=== PATIENT | male | born 1990 | race African-American/Black ===

== ENCOUNTER 2017-08-13 01:12 | Emergency (ER) | payer SELFPAY ==
[2017-08-13] MEDS ORDERED: NA CHLORIDE 0.9% 1,000 ML ONE (01:54)
[2017-08-13] MEDS ORDERED: ONDANSETRON 4 MG/2 ML VIAL ONE (01:54)
[2017-08-13 02:04] LABS: Absolute Lymphocytes (CBC) 3.3 K/uL (0.7-4.9); Absolute Monocytes 0.5 K/uL (0.1-1.3); Absolute Neutrophil 7.2 K/uL (1.8-8.0); Basophils % 0.6 % (0-1.3); Eosinophils % 3.9 % (0-4.4); Hematocrit 43.9 % (39.6-49.0); Lymphocytes % 28.6 % (15.3-44.8); MCH 28.2 pg (27.0-35.0); MCV 85.7 fL (80-100); Monocytes % 4.3 % (3.3-12.3); RBC Red Blood Cell Count 5.12 M/uL (4.33-5.43)
[2017-08-13 02:05] LABS: Protime INR 1.04
[2017-08-13 03:02] LABS: ALT/SGPT 18 U/L (12-78); AST/SGOT 18 U/L (15-37); Albumin 4.3 g/dL (3.4-5.0); Alcohol Serum/Plasma < 3 mg/dL (0-3); Alkaline Phosphatase 89 U/L (45-117); BUN Blood Urea Nitrogen 10 mg/dL (7-18); Bicarbonate 32 mmol/L (21-32); Bilirubin Direct 0.2 mg/dL (0-0.2); Bilirubin Total 0.6 mg/dL (0.2-1.0); CKMB Creatine Kinase MB < 1.0 ng/mL (0.3-3.6); Creatine Phosphokinase 156 U/L (39-308); Glucose Level 93 mg/dL (74-106); Magnesium 2.3 mg/dL (1.8-2.4); NT PRO-BNP 33 pg/mL (<125); Potassium 3.3 mmol/L (3.5-5.1); Protein, Total 8.5 g/dL (6.4-8.2); Sodium Level 143 mmol/L (136-145)
[2017-08-13 03:54] LABS: Barbiturates NEGATIVE (NEGATIVE); Benzodiazepines NEGATIVE (NEGATIVE); Cocaine POSITIVE (NEGATIVE); METHAMPHETAM POSITIVE (NEGATIVE); Methadone NEGATIVE (NEGATIVE); Opiates NEGATIVE (NEGATIVE); Phencyclidine NEGATIVE (NEGATIVE); THC Cannibis POSITIVE (NEGATIVE)
--- NOTE | 2017-08-13 03:59 | ER ---
Nurse's Notes [facility] Name: Vitor Friedman Age: 26 yrs Sex: Male : 1990 Arrival Date: 08/13/2017 Time: 01:15 Bed 13 Private MD: Diagnosis: Vomiting;Syncope and collapse;Chest pain, unspecified;Drug abuse - cocaine, methamphetamines, cannabinoids Presentation: 08/13 01:23 Presenting complaint: Patient states: "I was cooking at a family gathering and I tl2 remember blacking out for a few minutes. Now I've been vomiting since 10 pm and I have a headache and stomach pain". Transition of care: patient was not received from another setting of care. Onset of symptoms was August 12, 2017 at 22:00. Risk Assessment: Do you want to hurt yourself or someone else? Patient reports no desire to harm self or others. Initial Sepsis Screen: Does the patient meet any 2 criteria? No. Patient's initial sepsis screen is negative. Does the patient have a suspected source of infection? No. Patient's initial sepsis screen is negative. Care prior to arrival: None. 01:23 Method Of Arrival: Ambulatory tl2 01:23 Acuity: JONNIE 3 tl2 Triage Assessment: 01:25 General: Appears in no apparent distress. uncomfortable, Behavior is calm, cooperative, tl2 appropriate for age. Pain: Complains of pain in abdomen, headache. Neuro: Level of Consciousness is awake, alert, obeys commands, Oriented to person, place, time, situation. Respiratory: Airway is patent Respiratory effort is even, unlabored, Respiratory pattern is regular, symmetrical. GI: Reports nausea, vomiting. : No signs and/or symptoms were reported regarding the genitourinary system. Derm: Skin is normal. Historical: - Allergies: 01:25 No Known Allergies; tl2 - Home Meds: 01:25 None [Active]; tl2 - PMHx: 01:25 None; tl2 - PSHx: 01:25 None; tl2 - Immunization history:: Adult Immunizations up to date. - Social history:: Smoking status: Patient uses tobacco products, smokes one pack cigarettes per day. - Ebola Screening: : No symptoms or risks identified at this time. - Family history:: not pertinent. Screenin: Abuse screen: Denies threats or abuse. Nutritional screening: No deficits noted. tl2 Tuberculosis screening: No symptoms or risk factors identified. Fall Risk None identified. Assessment: 01:58 General: see triage assessment. tl2 02:19 Reassessment: Patient appears in no apparent distress at this time. Patient and/or tl2 family updated on plan of care and expected duration. Pain level reassessed. Patient is alert, oriented x 3, equal unlabored respirations, skin warm/dry/pink. Patient states feeling better. 03:00 Reassessment: Patient appears in no apparent distress at this time. Patient and/or tl2 family updated on plan of care and expected duration. Pain level reassessed. Patient is alert, oriented x 3, equal unlabored respirations, skin warm/dry/pink. 04:14 Reassessment: Patient appears in no apparent distress at this time. Patient and/or tl2 family updated on plan of care and expected duration. Pain level reassessed. Patient is alert, oriented x 3, equal unlabored respirations, skin warm/dry/pink. Pt verbalized understanding of discharge instructions, need for follow up and prescription usage Patient states feeling better. Vital Signs: 01:25 BP 136 / 93; Pulse 82; Resp 18; Temp 98.6(O); Pulse Ox 100% on R/A; Weight 65.77 kg; tl2 Height 5 ft. 11 in. (180.34 cm); Pain 1/10; 02:19 BP 116 / 76; Pulse 66; Resp 18; Pulse Ox 100% on R/A; tl2 02:59 BP 116 / 80; Pulse 65; Resp 18; Pulse Ox 100% on R/A; tl2 04:20 BP 119 / 87; Pulse 61; Resp 18; Pulse Ox 100% on R/A; tl2 01:25 Body Mass Index 20.22 (65.77 kg, 180.34 cm) tl2 ED Course: 01:15 Patient arrived in ED. al2 01:23 Zo Alvarez, DEMARIO is Primary Nurse. tl2 01:24 Triage completed. tl2 01:25 Arm band placed on right wrist. tl2 01:27 Patient has correct armband on for positive identification. Bed in low position. Call tl2 light in reach. Side rails up X 1. 01:33 Emery Panchal NP is PHCP. pm1 01:33 Chin Roberson MD is Attending Physician. pm1 01:45 Inserted saline lock: 20 gauge in right antecubital area, using aseptic technique. cc Blood collected. 01:45 Initial lab(s) drawn, by me, sent to lab. cc 01:53 X-ray completed. Portable x-ray completed in exam room. Patient tolerated procedure jw2 well. 01:[address] via wheelchair. kw1 02:00 CT completed. Patient tolerated procedure well. Patient moved back from CT. kw1 02:00 XRAY Chest (1 view) In Process Unspecified. EDMS 02:03 CT Head Brain wo Cont In Process Unspecified. EDMS 04:19 No provider procedures requiring assistance completed. IV discontinued, intact, tl2 bleeding controlled, No redness/swelling at site. Pressure dressing applied. Administered Medications: 01:57 Drug: Zofran 4 mg Route: IVP; Site: right antecubital; tl2 04:21 Follow up: Response: No adverse reaction; Nausea is decreased tl2 01:58 Drug: NS 0.9% 1000 ml Route: IV; Rate: 1000 ml; Site: right antecubital; tl2 04:21 Follow up: IV Status: Completed infusion; IV Intake: 1000ml tl2 01:58 Not Given (Duplicate Order): NS 0.9% 1000 ml IV at 1 bolus Per protocol; 1000 mL bolus tl2 04:10 Drug: Potassium Chloride 40 mEq Route: PO; tl2 04:22 Follow up: Response: No adverse reaction; Medication administered at discharge. tl2 Intake: 04:21 IV: 1000ml; Total: 1000ml. tl2 Outcome: 03:58 Discharge ordered by . pm1 04:19 Discharged to home ambulatory, with family. tl2 04:19 Condition: stable 04:19 Discharge instructions given to patient, family, Instructed on discharge instructions, follow up and referral plans. medication usage, Demonstrated understanding of instructions, follow-up care, medications, Prescriptions given X 1. 04:23 Patient left the ED. tl2 Signatures: Dispatcher [employer] Chin Douglas MD MD cha Christian, [place] cc Emery Panchal, PASSENGER AGENT PASSENGER AGENT pm1 Irma Vasquez jw2 Zo Alvarez RN RN tl2 Luisa Conn kw1 Sendy Brunson
--- NOTE | 2017-08-13 03:59 | EDPHYS ---
Physician Documentation [facility] Name: Vitor Friedman Age: 26 yrs Sex: Male : 1990 Arrival Date: 08/13/2017 Time: 01:15 Bed 13 Private MD: ED Physician Chin Roberson HPI: 08/13 01:38 This 26 yrs old Black Male presents to ER via Ambulatory with complaints of Vomiting. blossom 01:38 The patient presents to the emergency department with nausea, vomiting. Onset: The blossom symptoms/episode began/occurred just prior to arrival, yesterday, last night. Possible causes: unknown. The symptoms are aggravated by nothing. The symptoms are alleviated by nothing. Associated signs and symptoms: Pertinent positives: nausea, vomiting. Severity of symptoms: At their worst the symptoms were mild in the emergency department the symptoms are unchanged. The patient has not experienced similar symptoms in the past. Historical: - Allergies: 01:25 No Known Allergies; tl2 - Home Meds: 01:25 None [Active]; tl2 - PMHx: 01:25 None; tl2 - PSHx: 01:25 None; tl2 - Immunization history:: Adult Immunizations up to date. - Social history:: Smoking status: Patient uses tobacco products, smokes one pack cigarettes per day. - Ebola Screening: : No symptoms or risks identified at this time. - Family history:: not pertinent. ROS: 01:38 Constitutional: Negative for fever, chills, and weight loss, Eyes: Negative for injury, blossom pain, redness, and discharge, ENT: Negative for injury, pain, and discharge, Neck: Negative for injury, pain, and swelling, Respiratory: Negative for shortness of breath, cough, wheezing, and pleuritic chest pain, Abdomen/GI: Negative for abdominal pain, nausea, vomiting, diarrhea, and constipation, Back: Negative for injury and pain, : Negative for injury, bleeding, discharge, and swelling, MS/Extremity: Negative for injury and deformity, Skin: Negative for injury, rash, and discoloration, Neuro: Negative for headache, weakness, numbness, tingling, and seizure, Psych: Negative for depression, anxiety, suicide ideation, homicidal ideation, and hallucinations, Allergy/Immunology: Negative for hives, rash, and allergies, Endocrine: Negative for neck swelling, polydipsia, polyuria, polyphagia, and marked weight changes. 01:38 Cardiovascular: Positive for chest pain. 01:38 Neuro: Positive for headache. Exam: 01:38 Constitutional: This is a well developed, well nourished patient who is awake, alert, blossom and in no acute distress. Head/Face: Normocephalic, atraumatic. Eyes: Pupils equal round and reactive to light, extra-ocular motions intact. Lids and lashes normal. Conjunctiva and sclera are non-icteric and not injected. Cornea within normal limits. Periorbital areas with no swelling, redness, or edema. ENT: Nares patent. No nasal discharge, no septal abnormalities noted. Tympanic membranes are normal and external auditory canals are clear. Oropharynx with no redness, swelling, or masses, exudates, or evidence of obstruction, uvula midline. Mucous membranes moist. Neck: Trachea midline, no thyromegaly or masses palpated, and no cervical lymphadenopathy. Supple, full range of motion without nuchal rigidity, or vertebral point tenderness. No Meningismus. Chest/axilla: Normal chest wall appearance and motion. Nontender with no deformity. No lesions are appreciated. Cardiovascular: Regular rate and rhythm with a normal S1 and S2. No gallops, murmurs, or rubs. Normal PMI, no JVD. No pulse deficits. Respiratory: Lungs have equal breath sounds bilaterally, clear to auscultation and percussion. No rales, rhonchi or wheezes noted. No increased work of breathing, no retractions or nasal flaring. Abdomen/GI: Soft, non-tender, with normal bowel sounds. No distension or tympany. No guarding or rebound. No evidence of tenderness throughout. Back: No spinal tenderness. No costovertebral tenderness. Full range of motion. Male : Normal genitalia with no discharge or lesions. Skin: Warm, dry with normal turgor. Normal color with no rashes, no lesions, and no evidence of cellulitis. MS/ Extremity: Pulses equal, no cyanosis. Neurovascular intact. Full, normal range of motion. Neuro: Awake and alert, GCS 15, oriented to person, place, time, and situation. Cranial nerves II-XII grossly intact. Motor strength 5/5 in all extremities. Sensory grossly intact. Cerebellar exam normal. Normal gait. Psych: Awake, alert, with orientation to person, place and time. Behavior, mood, and affect are within normal limits. Vital Signs: 01:25 BP 136 / 93; Pulse 82; Resp 18; Temp 98.6(O); Pulse Ox 100% on R/A; Weight 65.77 kg; tl2 Height 5 ft. 11 in. (180.34 cm); Pain 1/10; 02:19 BP 116 / 76; Pulse 66; Resp 18; Pulse Ox 100% on R/A; tl2 02:59 BP 116 / 80; Pulse 65; Resp 18; Pulse Ox 100% on R/A; tl2 04:20 BP 119 / 87; Pulse 61; Resp 18; Pulse Ox 100% on R/A; tl2 01:25 Body Mass Index 20.22 (65.77 kg, 180.34 cm) tl2 MDM: 01:36 Patient medically screened. [facility] 01:40 Data reviewed: vital signs, nurses notes, lab test result(s), EKG, radiologic studies, blossom CT scan, plain films. 03:57 Counseling: I had a detailed discussion with the patient and/or guardian regarding: the pm1 historical points, exam findings, and any diagnostic results supporting the discharge/admit diagnosis, lab results, radiology results, the need for outpatient follow up, to return to the emergency department if symptoms worsen or persist or if there are any questions or concerns that arise at home. 08/13 01:37 Order name: Basic Metabolic Panel pm1 08/13 01:38 Order name: Basic Metabolic Panel; Complete Time: 03:43 [facility] 08/13 01:38 Order name: CBC with Diff; Complete Time: 02:19 [facility] 08/13 01:37 Order name: XRAY Chest (1 view) pm1 08/13 01:38 Order name: Ckmb; Complete Time: 03:43 [facility] 08/13 01:38 Order name: CPK; Complete Time: 03:43 [facility] 08/13 01:38 Order name: LFT's; Complete Time: 03:43 [facility] 08/13 01:38 Order name: Magnesium; Complete Time: 03:43 [facility] 08/13 01:38 Order name: NT PRO-BNP; Complete Time: 03:43 [facility] 08/13 01:38 Order name: PT-INR; Complete Time: 02:19 [facility] 08/13 01:38 Order name: Ptt, Activated; Complete Time: 02:19 [facility] 08/13 01:38 Order name: Troponin (emerg Dept Use Only); Complete Time: 02:22 [facility] 08/13 01:38 Order name: Acetaminophen; Complete Time: 03:43 [facility] 08/13 01:38 Order name: ETOH Level; Complete Time: 03:43 [facility] 08/13 01:38 Order name: Salicylate; Complete Time: 03:00 [facility] 08/13 01:38 Order name: Urine Drug Screen; Complete Time: 03:56 [facility] 08/13 01:38 Order name: CT Head Brain wo Cont 08/13 01:37 Order name: EKG; Complete Time: 01:38 pm08/13 01:37 Order name: Cardiac monitoring; Complete Time: 01:57 pm08/13 01:37 Order name: EKG - Nurse/Tech; Complete Time: 01:57 pm08/13 01:37 Order name: IV Saline Lock; Complete Time: 01:57 pm08/13 01:37 Order name: Labs collected and sent; Complete Time: 01:57 pm08/13 01:37 Order name: O2 Per Protocol; Complete Time: 01:57 08/13 01:37 Order name: O2 Sat Monitoring; Complete Time: 01:57 pm08/13 01:37 Order name: Urine Dipstick-Ancillary (obtain specimen); Complete Time: 03:02 pm08/13 01:38 Order name: Cardiac monitoring; Complete Time: 01:52 [facility] 08/13 01:38 Order name: EKG - Nurse/Tech; Complete Time: 01:58 [facility] 08/13 01:38 Order name: IV Saline Lock; Complete Time: 01:52 [facility] 08/13 01:38 Order name: Labs collected and sent; Complete Time: 01:52 [facility] 08/13 01:38 Order name: O2 Per Protocol; Complete Time: 01:52 [facility] 08/13 01:38 Order name: O2 Sat Monitoring; Complete Time: 01:52 [facility] 08/13 01:38 Order name: Urine Dipstick-Ancillary (obtain specimen); Complete Time: 03:02 [facility] Administered Medications: 01:57 Drug: Zofran 4 mg Route: IVP; Site: right antecubital; tl2 04:21 Follow up: Response: No adverse reaction; Nausea is decreased tl2 01:58 Drug: NS 0.9% 1000 ml Route: IV; Rate: 1000 ml; Site: right antecubital; tl2 04:21 Follow up: IV Status: Completed infusion; IV Intake: 1000ml tl2 01:58 Not Given (Duplicate Order): NS 0.9% 1000 ml IV at 1 bolus Per protocol; 1000 mL bolus tl2 04:10 Drug: Potassium Chloride 40 mEq Route: PO; tl2 04:22 Follow up: Response: No adverse reaction; Medication administered at discharge. tl2 Disposition: 08/13/17 03:58 Discharged to Home. Impression: Vomiting, Syncope and collapse, Chest pain, unspecified, Drug abuse - cocaine, methamphetamines, cannabinoids. - Condition is Stable. - Discharge Instructions: Nonspecific Chest Pain, Nausea and Vomiting, Syncope, Nausea and Vomiting, Fbfs-qq-Glex, Nonspecific Chest Pain, Nrfh-ws-Ssfa, Syncope, Ltbu-af-Bxlf, Alcohol and Drug Addiction, Finding Treatment, Stimulant Use Disorder-Cocaine, Marijuana Abuse-Brief, Stimulant Use Disorder-Methamphetamines. - Prescriptions for Zofran 4 mg Oral Tablet - take 1 tablet by ORAL route every 12 hours As needed; 14 tablet. - Medication Reconciliation Form, Thank You Letter, Work release form form. - Follow up: Private Physician; When: 2 - 3 days; Reason: Recheck today's complaints, Re-evaluation by your physician. - Problem is new. - Symptoms have improved. Addendum: 08/14/2017 09:28 Co-signature as Attending Physician, Chin Roberson MD I agree with the assessment and c ba plan of care. Signatures: Dispatcher [employer] Chin Douglas MD MD cha Marinas, Patrick, NP TELEVISION REPORTER pm1 Zo Alvarez RN RN tl2 Corrections: (The following items were deleted from the chart) 08/13 01:46 01:38 Chest Single View+RAD.RAD.BRZ ordered. EDMS EDMS 02:03 01:37 Head Brain Wo Cont+CT.RAD.BRZ ordered. EDMS EDMS 02: 01:38 TROPONIN (EMERG DEPT USE ONLY)+C.LAB.BRZ ordered. EDMS EDMS 02:07 01:38 URINE DRUG SCREEN+CHEM UR.LAB.BRZ ordered. EDMS EDMS 02: 01:38 Basic Metabolic Panel ordered. EDMS EDMS 02:08 01:38 CBC+H.LAB.BRZ ordered. EDMS EDMS 02:08 01:38 CKMB+C.LAB.BRZ ordered. EDMS EDMS 02:08 01:38 CREATINE PHOSPHOKINASE+C.LAB.BRZ ordered. EDMS EDMS 02:08 01:38 HEPATIC FUNCTION+C.LAB.BRZ ordered. EDMS EDMS 02:08 01:38 MAGNESIUM+C.LAB.BRZ ordered. EDMS EDMS 02:08 01:38 PROBNP+C.LAB.BRZ ordered. EDMS EDMS 02:08 01:38 PROTIME (+INR)+COAG.LAB.BRZ ordered. EDMS EDMS 02:08 01:38 PTT, ACTIVATED+COAG.LAB.BRZ ordered. EDMA EDMS 04:23 03:58 08/13/2017 03:58 Discharged to Home. Impression: Vomiting; Syncope and collapse; tl2 Chest pain, unspecified; Drug abuse - cocaine, methamphetamines, cannabinoids. Condition is Stable. Discharge Instructions: Nonspecific Chest Pain, Nausea and Vomiting, Syncope, Nausea and Vomiting, Vlfm-vo-Skcw, Nonspecific Chest Pain, Dkpu-tq-Gvqm, Syncope, Ttna-cf-Tekw. Prescriptions for Zofran 4 mg Oral Tablet - take 1 tablet by ORAL route every 12 hours As needed; 14 tablet. and Forms are Medication Reconciliation Form, Thank You Letter, Antibiotic Education, Prescription Opioid Use. Follow up: Private Physician; When: 2 - 3 days; Reason: Recheck today's complaints, Re-evaluation by your physician. Problem is new. Symptoms have improved. pm1
[2017-08-13] MEDS ORDERED: POTASSIUM CL SA 10 MEQ TAB PO ONE (04:07)
--- NOTE | 2017-08-13 10:53 | EKG ---
Test Date: 2017-08-13 Test Time: 01:48:21 Tip Cutter: RAMONITA MEASUREMENT RESULTS: Intervals: Rate: 67 IL: 150 QRSD: 84 QT: 356 QTc: 376 Aniwa: P: 69 IL: 150 QRS: 34 T: 28 INTERPRETIVE STATEMENTS: Normal sinus rhythm Normal ECG No previous ECG available for comparison Electronically Signed On 08-13-17 10:53:33 CDT by Nasir Felix
--- NOTE | 2017-08-13 12:34 | RAD REPORT ---
EXAM DESCRIPTION: CT - Head Brain Wo Cont - 08/13/2017 6:57 am CLINICAL HISTORY: Dizziness;Syncope Fall, head injury. COMPARISON: No comparisons TECHNIQUE: All CT scans are performed using dose optimization technique as appropriate and may inclu de automated exposure control or mA/KV adjustment according to patient size. FINDINGS: No intracranial hemorrhage, hydrocephalus or extra-axial fluid collection.No areas of brai n edema or evidence of midline shift. The paranasal sinuses and mastoids are clear. The calvarium is intact. IMPRESSION: No acute intracranial abnormality.
--- NOTE | 2017-08-13 12:37 | RAD REPORT ---
EXAM DESCRIPTION: RAD - Chest Single View - 08/13/2017 2:00 am CLINICAL HISTORY: syncope Chest pain. COMPARISON: No comparisons FINDINGS: Portable technique limits examination quality. The lungs are grossly clear. The heart is normal in size. No displaced fractures. IMPRESSION: No acute intrathoracic process suspected.
== END 2017-08-13 04:23 | disposition home or self-care (01) ==
LOC: ER 01:12
DX: R55 Syncope and collapse (principal); R07.9 Chest pain, unspecified; F14.10 Cocaine abuse, uncomplicated; F15.10 Other stimulant abuse, uncomplicated; F17.210 Nicotine dependence, cigarettes, uncomplicated
CPT/HCPCS: 36415; 70450; 71045; 80048; 80076; 80307; 80320; 80329; 82550; 82553; 83735; 83880; 84484; 85025; 85610; 85730; 93005; 96361; 96374; 99284; J2405; J7030

== ENCOUNTER 2017-10-21 18:56 | Emergency (ER) | payer SELFPAY ==
[2017-10-21] MEDS ORDERED: DIPHENHYDRAMINE 25 MG TAB/CAP ONE (21:03)
--- NOTE | 2017-10-21 21:08 | EDPHYS ---
Physician Documentation [facility] Name: Vitor Friedman Age: 27 yrs Sex: Male : 1990 Arrival Date: 10/21/2017 Time: 18:57 Bed 24 Private MD: ED Physician Nilton Mcnally HPI: 10/21 21:03 This 27 yrs old Black Male presents to ER via Ambulatory with complaints of MIGRAINE. gs 21:03 The patient complains of pain to the right sikhism and left sikhism. The patient gs describes the headache as throbbing. Onset: The symptoms/episode began/occurred 3 day(s) ago. Onset: The symptoms/episode began/occurred gradually. Associated signs and symptoms: Pertinent negatives: altered mental status. Severity of symptoms: At its worst the pain was moderate, in the emergency department the pain is unchanged. Headache History: The patient has had previous headaches and this one is similar to previous episodes. The symptoms are alleviated by nothing. the symptoms are aggravated by nothing. The patient has experienced similar episodes in the past, several times. Historical: - Allergies: 19:25 No Known Allergies; aj - Home Meds: 19:25 None [Active]; aj - PMHx: 19:25 Migraines; aj - PSHx: 19:25 None; aj - Immunization history:: Adult Immunizations up to date. - Social history:: Smoking status: Patient uses tobacco products, smokes one pack cigarettes per day. - Ebola Screening: : Patient negative for fever greater than or equal to 101.5 degrees Fahrenheit, and additional compatible Ebola Virus Disease symptoms Patient denies exposure to infectious person Patient denies travel to an Ebola-affected area in the 21 days before illness onset No symptoms or risks identified at this time. ROS: 21:03 All other systems are negative. gs Exam: 21:03 Head/Face: Normocephalic, atraumatic. Eyes: Pupils equal round and reactive to light, gs extra-ocular motions intact. Lids and lashes normal. Conjunctiva and sclera are non-icteric and not injected. Cornea within normal limits. Periorbital areas with no swelling, redness, or edema. ENT: Nares patent. No nasal discharge, no septal abnormalities noted. Tympanic membranes are normal and external auditory canals are clear. Oropharynx with no redness, swelling, or masses, exudates, or evidence of obstruction, uvula midline. Mucous membranes moist. Neck: Trachea midline, no thyromegaly or masses palpated, and no cervical lymphadenopathy. Supple, full range of motion without nuchal rigidity, or vertebral point tenderness. No Meningismus. Chest/axilla: Normal chest wall appearance and motion. Nontender with no deformity. No lesions are appreciated. Cardiovascular: Regular rate and rhythm with a normal S1 and S2. No gallops, murmurs, or rubs. Normal PMI, no JVD. No pulse deficits. Respiratory: Lungs have equal breath sounds bilaterally, clear to auscultation and percussion. No rales, rhonchi or wheezes noted. No increased work of breathing, no retractions or nasal flaring. Abdomen/GI: Soft, non-tender, with normal bowel sounds. No distension or tympany. No guarding or rebound. No evidence of tenderness throughout. Back: No spinal tenderness. No costovertebral tenderness. Full range of motion. Skin: Warm, dry with normal turgor. Normal color with no rashes, no lesions, and no evidence of cellulitis. MS/ Extremity: Pulses equal, no cyanosis. Neurovascular intact. Full, normal range of motion. Neuro: Awake and alert, GCS 15, oriented to person, place, time, and situation. Cranial nerves II-XII grossly intact. Motor strength 5/5 in all extremities. Sensory grossly intact. Cerebellar exam normal. Normal gait. 21:03 Constitutional: The patient appears in no acute distress, alert, awake. Vital Signs: 19:25 BP 120 / 82; Pulse 79; Resp 15; Temp 97.8; Pulse Ox 99% on R/A; Weight 65.77 kg; Height aj 5 ft. 9 in. (175.26 cm); 20:39 BP 101 / 75; Pulse 72; Resp 18; Pulse Ox 98% on R/A; mg2 21:37 BP 110 / 60; Pulse 85; Resp 18; Pulse Ox 100% on R/A; Pain 0/10; mg2 19:25 Body Mass Index 21.41 (65.77 kg, 175.26 cm) aj MDM: 19:48 Patient medically screened. 21:03 Differential diagnosis: migraine, tension headache, vasomotor headache. Data reviewed: vital signs, nurses notes. Response to treatment: the patient's symptoms have markedly improved after treatment, and as a result, I will discharge patient. Administered Medications: 20:28 Drug: Reglan 10 mg Route: IVP; Site: right antecubital; mg2 21:39 Follow up: Response: No adverse reaction; Marked relief of symptoms mg2 20:28 Drug: TORadol 30 mg Route: IVP; Site: right antecubital; mg2 21:38 Follow up: Response: No adverse reaction; Marked relief of symptoms mg2 20:28 Drug: NS 0.9% 1000 ml Route: IV; Rate: 1 bolus; Site: right antecubital; mg2 21:38 Follow up: Response: No adverse reaction; IV Status: Completed infusion mg2 20:59 Drug: Benadryl 25 mg {Note: given PO, no IV benadryl in pyxis.} Route: IVP; Site: Other;mg2 21:38 Follow up: Response: No adverse reaction; Marked relief of symptoms mg2 Disposition: 10/21/17 21:07 Discharged to Home. Impression: Headache. - Condition is Stable. - Discharge Instructions: General Headache Without Cause, Migraine Headache. - Medication Reconciliation Form, Thank You Letter, Antibiotic Education, Prescription Opioid Use, Work release form form. - Follow up: Kobi Abdalla MD; When: 2 - 3 days; Reason: Re-evaluation by your physician. Signatures: Jeanne Alvarez RN RN aj Starr, Gregory, MD MD Long Bee RN RN mg2 Corrections: (The following items were deleted from the chart) 21:39 21:07 10/21/2017 21:07 Discharged to Home. Impression: Headache. Condition is Stable. mg2 Forms are Medication Reconciliation Form, Thank You Letter, Antibiotic Education, Prescription Opioid Use. Follow up: Kobi Abdalla; When: 2 - 3 days; Reason: Re-evaluation by your physician. gs
--- NOTE | 2017-10-21 21:08 | ER ---
Nurse's Notes [facility] Name: Vitor Friedman Age: 27 yrs Sex: Male : 1990 Arrival Date: 10/21/2017 Time: 18:57 Bed 24 Private MD: Diagnosis: Headache Presentation: 10/21 19:24 Presenting complaint: Patient states: Migraine headache for 3 days with N/V. Patient aj reports he has not had a migraine in years. Tried Tylenol, Advil and Benadryl at home. Transition of care: patient was not received from another setting of care. Onset of symptoms was October 18, 2017. Risk Assessment: Do you want to hurt yourself or someone else? Patient reports no desire to harm self or others. Initial Sepsis Screen: Does the patient meet any 2 criteria? No. Patient's initial sepsis screen is negative. Does the patient have a suspected source of infection? No. Patient's initial sepsis screen is negative. Care prior to arrival: None. 19:24 Method Of Arrival: Ambulatory 19:24 Acuity: JONNIE 3 aj Triage Assessment: 19:25 General: Appears in no apparent distress. uncomfortable, Behavior is calm, cooperative, aj appropriate for age. Pain: Complains of pain in face. Neuro: Level of Consciousness is awake, alert, obeys commands, Oriented to person, place, time, situation, Appropriate for age. Neuro: Reports headache parietal area. Respiratory: Airway is patent Respiratory effort is even, unlabored, Respiratory pattern is regular, symmetrical. GI: Reports nausea, vomiting. Derm: Skin is intact, is healthy with good turgor, Skin is pink, warm \T\ dry. normal. Historical: - Allergies: 19:25 No Known Allergies; aj - Home Meds: 19:25 None [Active]; aj - PMHx: 19:25 Migraines; aj - PSHx: 19:25 None; aj - Immunization history:: Adult Immunizations up to date. - Social history:: Smoking status: Patient uses tobacco products, smokes one pack cigarettes per day. - Ebola Screening: : Patient negative for fever greater than or equal to 101.5 degrees Fahrenheit, and additional compatible Ebola Virus Disease symptoms Patient denies exposure to infectious person Patient denies travel to an Ebola-affected area in the 21 days before illness onset No symptoms or risks identified at this time. Screenin:39 Abuse screen: Denies threats or abuse. Nutritional screening: No deficits noted. mg2 Tuberculosis screening: No symptoms or risk factors identified. Fall Risk None identified. Assessment: 20:39 General: Appears uncomfortable, well groomed, well developed, well nourished, Behavior mg2 is calm, cooperative, appropriate for age. Pain: Complains of pain in face. Neuro: Level of Consciousness is awake, alert, obeys commands, Oriented to person, place, time, situation, Appropriate for age. Cardiovascular: Patient's skin is warm and dry. Respiratory: Airway is patent Respiratory effort is even, unlabored, Respiratory pattern is regular, symmetrical. GI: No signs and/or symptoms were reported involving the gastrointestinal system. : No signs and/or symptoms were reported regarding the genitourinary system. EENT: No signs and/or symptoms were reported regarding the EENT system. Derm: No signs and/or symptoms reported regarding the dermatologic system. Musculoskeletal: No signs and/or symptoms reported regarding the musculoskeletal system. 21:37 Reassessment: Patient appears in no apparent distress at this time. Patient and/or mg2 family updated on plan of care and expected duration. Pain level reassessed. Patient is alert, oriented x 3, equal unlabored respirations, skin warm/dry/pink. Vital Signs: 19:25 BP 120 / 82; Pulse 79; Resp 15; Temp 97.8; Pulse Ox 99% on R/A; Weight 65.77 kg; Height aj 5 ft. 9 in. (175.26 cm); 20:39 BP 101 / 75; Pulse 72; Resp 18; Pulse Ox 98% on R/A; mg2 21:37 BP 110 / 60; Pulse 85; Resp 18; Pulse Ox 100% on R/A; Pain 0/10; mg2 19:25 Body Mass Index 21.41 (65.77 kg, 175.26 cm) ED Course: 18:57 Patient arrived in ED. rg4 19:25 Triage completed. aj 19:25 Arm band placed on right wrist. Patient placed in an exam room. aj 19:30 Nilton Mcnally MD is Attending Physician. gs 20:39 Long Bee, DEMARIO is Primary Nurse. mg2 20:39 Patient has correct armband on for positive identification. mg2 20:39 No provider procedures requiring assistance completed. Inserted saline lock: 20 gauge mg2 in right antecubital area, using aseptic technique. 21:07 Kobi Abdalla MD is Referral Physician. gs 21:39 IV discontinued, intact, bleeding controlled, No redness/swelling at site. Pressure mg2 dressing applied. Administered Medications: 20:28 Drug: Reglan 10 mg Route: IVP; Site: right antecubital; mg2 21:39 Follow up: Response: No adverse reaction; Marked relief of symptoms mg2 20:28 Drug: TORadol 30 mg Route: IVP; Site: right antecubital; mg2 21:38 Follow up: Response: No adverse reaction; Marked relief of symptoms mg2 20:28 Drug: NS 0.9% 1000 ml Route: IV; Rate: 1 bolus; Site: right antecubital; mg2 21:38 Follow up: Response: No adverse reaction; IV Status: Completed infusion mg2 20:59 Drug: Benadryl 25 mg {Note: given PO, no IV benadryl in pyxis.} Route: IVP; Site: Other;mg2 21:38 Follow up: Response: No adverse reaction; Marked relief of symptoms mg2 Outcome: 21:07 Discharge ordered by . gs 21:39 Discharged to home ambulatory, with family. mg2 21:39 Condition: stable 21:39 Discharge instructions given to patient, family, Instructed on discharge instructions, follow up and referral plans. Demonstrated understanding of instructions, follow-up care. 21:39 Patient left the ED. mg2 Signatures: Jeanne Alvarez RN RN aj Garcia, Rubi rg4 Nilton Mcnally MD MD gs Gardose, Michele, RN RN mg2
[2017-10-22] MEDS ORDERED: DIPHENHYDRAMINE 50 MG/ML VIAL ONE (00:39)
== END 2017-10-21 21:39 | disposition home or self-care (01) ==
LOC: ER 18:56
DX: R51 Headache (principal); F17.210 Nicotine dependence, cigarettes, uncomplicated
CPT/HCPCS: 99283